=== PATIENT | female | born 1930 | race Two or more races ===

== ENCOUNTER 2017-04-22 15:36 | Inpatient (IN) | payer OTHER, MEDICAID ==
[~2017-04-22] VITALS: Ht 147.3 cm; Wt 66.7 kg
[~2017-04-22 15:36] MED LIST: ALPR0.25 PO; BIMA2.5D5 OP; BRIN15DR OP; CALC600T12 PO; CARV3.12 PO; DOCU50CA6 PO; FERR-58 PO; FURO-144 PO; GLIM1TAB2 PO; HYDR-4077 PO; LEVO5TAB13 PO; LOVA20TA2 PO; PANT40TA4 PO
--- NOTE | 2017-04-22 15:58 | NUR ---
electrical technician instructor at bedside for blood draw. Urine obtained and sent to lab as well.
[2017-04-22 15:59] LABS: APPEARANCE,URINE Clear (CLEAR); BILIRUBIN,URINE Negative (NEGATIVE); BLOOD, URINE Negative Ery/uL (NEGATIVE); COLOR,URINE Yellow (YELLOW); KETONES,URINE Negative (NEGATIVE); LEUKOCYTE ESTERASE ,URINE Trace (NEGATIVE); NITRITE, URINE Negative (NEGATIVE); PH,URINE 5.5 (5.0-8.0); PROTEIN,URINE >=300 mg/dl (NEGATIVE); UGLUCOSE Negative (NEGATIVE); UROBILINOGEN,URINE 0.2 EU/dL (0.2)
--- NOTE | 2017-04-22 16:00 | NUR ---
BB FROM [facility] LIVES IN AN USP WITH SI PLANS TO TAKE PILLS. DENIES HI. PATIENT A/OX 4. BREATHING EVEN AND UNLABORED. NO SOB. NO HALLUCINATIONS, PATIENT CALM AND COOPERATIVE. VITALS STABLE. SAFETY AND COMFORT MEASURES IN PLACE. AWAITING MD ORDERS.
[2017-04-22 16:02] LABS: BASOPHILS % (AUTO) 0.1 % (0.0-2.0); EOSINOPHILS # (AUTO) 0.1 /CMM (0.0-0.7); EOSINOPHILS % (AUTO) 1.6 % (0.0-6.0); HEMATOCRIT 39 % (33-45); HEMOGLOBIN 13.1 g/dL (11.5-14.8); LYMPHOCYTES # (AUTO) 1.2 /CMM (0.8-4.8); LYMPHOCYTES % (AUTO) 13.9 % (20.0-44.0); MEAN CORPUSCULAR HEMOGLOBIN 30 PG (26.0-33.0); MEAN CORPUSCULAR HGB CONC 34 g/dl (31.0-36.0); MEAN CORPUSCULAR VOLUME 89 fL (82-100); MONOCYTES # (AUTO) 0.4 /CMM (0.1-1.30); MONOCYTES % (AUTO) 4.7 % (2.0-12.0); NEUTROPHILS # (AUTO) 6.6 /CMM (1.8-8.9); NEUTROPHILS % (AUTO) 79.7 % (43.0-81.0); PLATELET COUNT (AUTO) 175 /CMM (150-450); RDW COEFFICIENT OF VARIATION 13.4 (11.5-15.0); RED BLOOD CELL COUNT(AUTO) 4.34 MIL/uL (4.0-5.2); WHITE BLOOD COUNT (AUTO) 8.3 K/uL (4.3-11.0)
[2017-04-22 16:08] LABS: BACTERIA,URINE Rare /HPF (None Seen); HYALINE CASTS, URINE Rare /LPF (None Seen); RBC,URINE 0-3 /HPF (0-2); SQUAMOUS EPITHELIAL CELL,UR Few /HPF (None Seen)
[2017-04-22 16:13] LABS: CALCIUM, SERUM 8.7 mg/dL (8.5-10.1); CARBON DIOXIDE 28 mmol/L (21-32); CHLORIDE 106 mmol/L (98-107); CREATININE 1.8 mg/dL (0.6-1.3); GLUCOSE 209 mg/dL (74-106); POTASSIUM 4.1 mmol/L (3.5-5.1); SODIUM SERUM 140 mmol/L (136-145); UREA NITROGEN, BLOOD 37 mg/dL (7-18)
[2017-04-22 16:18] LABS: ALANINE AMINOTRANSFERASE 18 U/L (12-78); ALBUMIN 3.5 g/dL (3.4-5.0); ALCOHOL, BLOOD < 3 mg/dL (0-0); ALKALINE PHOSPHATASE 108 U/L (46-116); ASPARTATE AMINOTRANSFERASE 19 U/L (15-37); BILIRUBIN,DIRECT 0.1 mg/dL (0.0-0.2); BILIRUBIN,TOTAL 0.3 mg/dL (0.2-1.0); TOTAL PROTEIN, SERUM 7.7 g/dL (6.4-8.2)
[2017-04-22 16:19] LABS: ACETAMINOPHEN 0 ug/ml (10-30); SALICYLATE 0.7 mg/dL (2.8-20.0)
[2017-04-22 16:34] LABS: THYROID STIMULATING HORMONE 1.544 uIU/mL (0.358-3.74)
--- NOTE | 2017-04-22 16:45 | NUR ---
SHANITA OSBORNE AT BEDSIDE FOR PSYCH EVAL. PATIENT PLACED ON 5150 D/T DTS. PATIENT TO BE TRANSFERRED TO GPS.
--- NOTE | 2017-04-22 17:15 | NUR ---
REPORT GIVEN TO KELBY VELASQUEZ FOR GPS TRANSFER.
--- NOTE | 2017-04-22 17:35 | NUR ---
pt. arrived from er,vs taken oriented to room food ordered.belonging sheet done.
--- NOTE | 2017-04-22 17:37 | NUR ---
PATIENT TRANSFERRED TO GPS, ROOM 211 VIA WHEELCHAIR IN STABLE CONDITION.
[2017-04-22] MEDS ORDERED: MAGNESIUM HYDROXIDE 30 ML UDC PO PRN (18:30)
[2017-04-22] MEDS ORDERED: MAG HYDROX/AL HYDROX/SIMETH 30 ML UDC PO PRN (18:30)
[2017-04-22] MEDS ORDERED: ACETAMINOPHEN 325 MG TABLET PO PRN (18:30)
[2017-04-22] MEDS ORDERED: LORAZEPAM 0.5 MG TABLET PO PRN (18:30)
--- NOTE | 2017-04-22 18:50 | NUR ---
photos done.refused further body check other than arms,legs,will endorse to naga. shift.
[2017-04-22] MEDS ORDERED: ALEN70TA45 PO (19:13)
[2017-04-22] MEDS ORDERED: CARV12.52 PO (19:13)
[2017-04-22] MEDS ORDERED: AMLO5TAB2 PO (19:13)
[2017-04-22] MEDS ORDERED: ACET325T53 PO (19:13)
[2017-04-22] MEDS ORDERED: DOCU250C75 PO (19:13)
[2017-04-22] MEDS ORDERED: MAG30ORA PO (19:13)
[2017-04-22] MEDS ORDERED: CHOL100040 PO (19:13)
[2017-04-22] MEDS ORDERED: ALBU8.5H2 INH (19:13)
[2017-04-22] MEDS ORDERED: DONE5TAB34 PO (19:13)
[2017-04-22] MEDS ORDERED: CALC1TAB30 PO (19:13)
[2017-04-22] MEDS ORDERED: ASPI-991 PO (19:13)
[2017-04-22] MEDS ORDERED: MENT113G5 TP (19:26)
[2017-04-22] MEDS ORDERED: DORZ10DR8 EACHEYE (19:26)
[2017-04-22] MEDS ORDERED: HYDR-4077 PO (19:26)
[2017-04-22] MEDS ORDERED: FLUT16SP16 NS (19:26)
[2017-04-22] MEDS ORDERED: NITR1OIN2 TD (19:26)
[2017-04-22] MEDS ORDERED: NITR0.4T6 SL (19:26)
[2017-04-22] MEDS ORDERED: GLIM4TAB2 PO (19:26)
[2017-04-22] MEDS ORDERED: LATA2.5D7 EACHEYE (19:26)
[2017-04-22] MEDS ORDERED: PROP10DR10 EACHEYE (19:26)
--- NOTE | 2017-04-22 19:30 | NUR ---
GPS ADMISSION NOTE, RECEIVED PATIENT FROM [facility]. PATIENT ARRIVED ON THIS UNIT AT 1930 VIA STRETCHER WITH 2 EMT ESCORTS. PATIENT ADMITTED ON A 5150 HOLD FOR DTS. PER HOLD PATIENT HAS BEEN VERBALIZING THAT SHE IS SUICIDAL. PATIENT HAS A HISTORY OF DEPRESSION AND TOLD THE STAFF SHE WANTED TO OVERDOSE ON MEDICATION. WHEN INTERVIEWED PATIENT STATED, " I JUST DON'T WANT TO LIVE, I'VE BEEN THINKING ABOUT HANGING MYSELF BECAUSE THEIR IS NO FUTURE FOR ME. PATIENT IS NOT SAFE FOR DISCHARGE. THE 5150 WAS REVIEWED AND THE DOCUMENTATION IN THE 5150 HOLD APPEARS TO REFLECT THE PRESENTATION OF THE PATIENT. UPON FACE TO FACE ASSESSMENT PATIENT IS CURRENTLY LYING IN BED AWAKE, HAS A COMPLAINT OR S/S OF PAIN. PATIENT IS DISPLAYING NO S/S OF APPARENT DISTRESS. PATIENT BREATHING IS UNLABORED WITH EQUAL RISE AND FALL OF THE CHEST. PATIENT IS ALERT AND ORIENTATED X 2 ON ROOM AIR. PATIENT ASSISTED WITH TURING AND REPOSITIONING Q2HR AND PRN FOR COMFORT AND CIRCULATION. PATIENT HAS NO NEEDS AT THIS TIME. PATIENT IS NOTED TO BEING WITHDRAWN, DEPRESSED, DISHEVELED, DISORGANIZED, COOPERATIVE, AND NEEDS REDIRECTION. PATIENT DENIES SUICIDE IDEATIONS AND HOMICIDAL IDEATIONS AT THIS TIME. PATIENT IS UNDER THE PSYCHIATRIC CARE OF DR. LORENZANA AND THE MEDICAL CARE OF DR LOMBARDI. PATIENT BELONGINGS WERE INVENTORIED AND CHECKED FOR CONTRABAND. ALL CONTRABAND REMOVED AND STORED IN PATIENT HALLWAY LOCKER. PATIENT ADVANCED DIRECTIVES PREFERENCE, IMMUNIZATIONS QUESTIONER, NECESSARY PAPERWORK COMPLETED. PATIENT REFUSED TO DO A FULL BODY CHECK. PATIENT ORIENTATED TO ROOM, FLOOR, AND STAFF WITH ALL QUESTIONS ANSWERED. PATIENT EDUCATED ON THE USE OF THE CALL OGLESBY. PATIENT BED SIDE RAILS ARE UP X 2 FOR SAFETY. PATIENT BED IS LOCKED, LOW AND I WILL CONTINUE TO MONITOR THIS PATIENT Q 15 MIN WITH THE HELP OF STAFF TO MAINTAIN SAFETY.
[2017-04-22] MEDS ORDERED: POTA20TA83 PO (19:33)
[2017-04-22] MEDS ORDERED: QUET25TA PO ×2 (19:33)
[2017-04-22] MEDS ORDERED: TIOT4MIS5 IH (19:33)
[2017-04-22] MEDS ORDERED: SENN8.6T6 PO (19:33)
[2017-04-22] MEDS ORDERED: SERT100T PO (19:33)
[2017-04-22 20:16] VITALS: BP 165/75
--- NOTE | 2017-04-22 22:24 | NUR ---
GPS RN NOTE, PATIENT VITAL SIGNS ARE FOLLOWS B/P 180/90, PULSE 78, TEMP 98.1, RESPIRATIONS 18, AND SPO2 98%. PERFORMED ACCU CHECK ON PATIENT WITH A BLOOD SUGAR RESULT OF 166. PATIENT ALSO NEEDS A MED RECONCILIATION WELL. PAGED [facility] AND INFORMED DR SOFI LO OF MY FINDINGS. DR SOFI LO ORDERED HYDRALAZINE HCL 50MG 1 TAB PO Q6HR PRN IF SYSTOLIC BP IS GREATER THAN 160, ALBUTEROL 2.5MG/3ML VIA NEB Q6HR PRN, IPRATROPIUM 0.5MG VIA NEB Q6HR PRN, AND A MODERATE INSULIN SLIDING SCALE ACHS TO START IN THE AM. DR SOFI LO SAID SHE WILL NOT BE ABLE TO THE MED RECON TONIGHT AND TO HAVE THE MORNING MD COMPLETE IT IN THE A.M. ALL ORDERS NOTED AND CARRIED OUT. WILL ENDORSE TO THE AM NURSE AND I WILL CONTINUE TO MONITOR THIS PATIENT.
[2017-04-22] MEDS ORDERED: DEXTROSE 50%-WATER 50 ML DISP.SYRIN IV PRN (22:30)
[2017-04-22] MEDS ORDERED: hydrALAZINE HCL 50 MG TABLET PO PRN (22:30)
[2017-04-22] MEDS ORDERED: IPRATROPIUM NEB FS 0.5 MG/2.5 ML AMPUL.NEB NEB PRN (22:30)
[2017-04-22] MEDS ORDERED: ALBUTEROL FS 2.5 MG/3 ML VIAL.NEB NEB PRN (22:30)
[2017-04-22 22:36] VITALS: BP 180/90
--- NOTE | 2017-04-22 22:36 | NUR ---
GPS RN NOTE, PATIENT VITAL SIGNS ARE FOLLOWS B/P 180/90, PULSE 78, TEMP 98.1, RESPIRATIONS 18, AND SPO2 98%. GAVE HYDRALAZINE HCL 50MG 1 TAB PO Q6HR PRN ORDERED. WILL REASSESS PATIENT BLOOD PRESSURE AND I WILL CONTINUE TO MONITOR THIS PATIENT.
[2017-04-23 07:14] LABS: ALANINE AMINOTRANSFERASE 18 U/L (12-78); ALBUMIN 2.8 g/dL (3.4-5.0); ALKALINE PHOSPHATASE 82 U/L (46-116); ASPARTATE AMINOTRANSFERASE 16 U/L (15-37); BILIRUBIN,TOTAL 0.3 mg/dL (0.2-1.0); CALCIUM, SERUM 8.8 mg/dL (8.5-10.1); CARBON DIOXIDE 29 mmol/L (21-32); CHLORIDE 107 mmol/L (98-107); CREATININE 1.4 mg/dL (0.6-1.3); GLUCOSE 98 mg/dL (74-106); POTASSIUM 3.8 mmol/L (3.5-5.1); SODIUM SERUM 144 mmol/L (136-145); TOTAL PROTEIN, SERUM 6.6 g/dL (6.4-8.2); UREA NITROGEN, BLOOD 31 mg/dL (7-18)
[2017-04-23 08:00] VITALS: BP 172/83
[2017-04-23] MEDS: BLOOD SUGAR DIAGNOSTIC 1 EACH STRIP VI SCH ×4 (08:54→22:11)
[2017-04-23] MEDS ORDERED: PNEUMOCOCCAL 23-VAL P-SAC VAC 0.5 ML VIAL SQ ONE (09:00)
[2017-04-23] MEDS ORDERED: MAG HYDROX/AL HYDROX/SIMETH 30 ML UDC PO PRN (10:30)
[2017-04-23] MEDS ORDERED: NITROGLYCERIN 0.4 MG/TAB BOTTLE SL PRN (10:30)
[2017-04-23] MEDS ORDERED: ALBUTEROL SULFATE 8 GM HFA.AER.AD NEB PRN (10:30)
[2017-04-23] MEDS ORDERED: BIMATOPROST 2.5 ML DROPS OP SCH (10:30)
[2017-04-23] MEDS ORDERED: BRINZOLAMIDE 1 % OPHTH SOLN 10 ML BOTTLE EACHEYE SCH (11:00)
--- NOTE | 2017-04-23 11:21 | NUR ---
Initial Discharge Plan: Patient resides in an [facility] ([facility]) located at [address] [place] [id number]; [phone]) and wants to return when she is ready for discharge. IRENE called [facility] and spoke to receptionist secretary Sanna. She stated patient is a resident of their facility and that the executive services administrator Alyx is not available until 12:30PM. SW attempted to speak with the patient's son ([phone]) however he did not answer and SW left contact information. SW will follow up. SW will help form a safe and proper discharge.
[2017-04-23] MEDS ORDERED: LEVOCETIRIZINE DIHYDROCHLORIDE 5 MG PO SCH (12:30)
--- NOTE | 2017-04-23 12:31 | NUR ---
UR review: IRENE faxed initial clinicals (face sheet, 5150 hold, medical H&P, medication list, discharge plan) to Jose BONILLA from [facility] for [facility] to FAX# [phone]. Informed him that psych H&P is not available yet and will fax when it becomes available. IRENE will follow up. TRACKING# [id number] Addendum: 04/23/17 at 1530 by SULMA BONILLA Called Jose at [facility] ([phone]). He stated correct fax number is FAX: [phone]. IRENE re-sent clinicals and informed him that psych H&P is not yet available and will send when it becomes available.
--- NOTE | 2017-04-23 12:58 | NUR ---
IRENE called [facility] ([address] [place] [address] ) and spoke with haroon Smith's coordinator. IRENE was informed that staff would need to come and reassess pt before deciding if pt can be re-admitted. IRENE will follow up.
[2017-04-23] MEDS: ASPIRIN EC 81 MG TABLET.DR PO SCH (13:44)
[2017-04-23] MEDS: hydrALAZINE HCL 50 MG TABLET PO SCH ×2 (13:45→17:44)
[2017-04-23] MEDS: AMLODIPINE BESYLATE 5 MG TABLET PO SCH (13:45)
--- NOTE | 2017-04-23 13:45 | NUR ---
GPS/RN BP WAS 200/80 ADMINISTERED 1300 BP MEDICATIONS ORDERED, WILL RECHECK AND CONTINUE TO MONITOR. NO S/S OF DISTRESS AT THIS TIME, BREATHING EVEN AND UNLABORED.
[2017-04-23] MEDS: FUROSEMIDE 40 MG TABLET PO SCH (13:46)
[2017-04-23] MEDS: IPRATROPIUM NEB FS 0.5 MG/2.5 ML AMPUL.NEB NEB SCH ×2 (14:54→19:51)
[2017-04-23 15:29] VITALS: BP 158/62
--- NOTE | 2017-04-23 15:30 | NUR ---
GPS/RN RECHECKED BP 158/62, HR 77, 02 95, WILL CONTINUE TO MONITOR.
[2017-04-23 16:00] VITALS: BP 158/62
[2017-04-23 16:10] LABS: CHOLESTEROL 210 mg/dL (<200); HDL CHOLESTEROL 48 mg/dL (40-60); LDL 128 mg/dL (0-99); TRIGLYCERIDES 208 mg/dL (30-150)
[2017-04-23] MEDS: INSULIN REGULAR, HUMAN 100 UNIT/ML 3 ML VIAL SQ PRN (17:32)
[2017-04-23] MEDS: FERROUS SULFATE (325 MG) 325 MG/TAB TABLET PO SCH (17:35)
[2017-04-23] MEDS: DOCUSATE SODIUM 250 MG CAPSULE PO SCH (17:36)
[2017-04-23] MEDS: CARVEDILOL 12.5 MG TABLET PO SCH (17:36)
[2017-04-23] MEDS: GLIMEPIRIDE 4 MG TABLET PO SCH (17:37)
[2017-04-23] MEDS: DORZOLAMIDE OPTH 2% 10 ML BOTTLE EACHEYE SCH (17:42)
--- NOTE | 2017-04-23 17:48 | NUR ---
GPS/RN ADMINISTERED PNEUMO VACCINE PER PATIENT REQUEST, TOLERATED WELL, WILL CONTINUE TO MONITOR.
[2017-04-23 20:00] VITALS: BP 147/74
[2017-04-23] MEDS: LATANOPROST EYE DROP 0.005% 2.5 ML BOTTLE EACHEYE SCH (21:46)
[2017-04-23] MEDS: ATORVASTATIN 10 MG TABLET PO SCH (21:46)
[2017-04-23] MEDS: SENNOSIDES 8.6 MG TABLET PO SCH (21:46)
[2017-04-23] MEDS: DONEPEZIL 5 MG TABLET PO SCH (21:46)
[2017-04-23] MEDS: TEMAZEPAM 7.5 MG CAPSULE PO PRN (21:47)
[2017-04-23] MEDS: OLANZAPINE 2.5 MG TABLET PO SCH (21:47)
[2017-04-23] MEDS ORDERED: LOVASTATIN (NON FORMULARY) 20 MG TABLET PO SCH (22:00)
[2017-04-24] MEDS: IPRATROPIUM NEB FS 0.5 MG/2.5 ML AMPUL.NEB NEB SCH ×4 (01:11→20:30)
[2017-04-24 06:41] LABS: MAGNESIUM 1.8 mg/dL (1.8-2.4); PHOSPHORUS 3.5 mg/dL (2.5-4.9)
[2017-04-24 07:15] LABS: BASOPHILS % (AUTO) 0.4 % (0.0-2.0); EOSINOPHILS # (AUTO) 0.2 /CMM (0.0-0.7); EOSINOPHILS % (AUTO) 2.4 % (0.0-6.0); HEMATOCRIT 35 % (33-45); HEMOGLOBIN 11.8 g/dL (11.5-14.8); LYMPHOCYTES # (AUTO) 1.5 /CMM (0.8-4.8); LYMPHOCYTES % (AUTO) 22.2 % (20.0-44.0); MEAN CORPUSCULAR HEMOGLOBIN 29 PG (26.0-33.0); MEAN CORPUSCULAR HGB CONC 33 g/dl (31.0-36.0); MEAN CORPUSCULAR VOLUME 88 fL (82-100); MONOCYTES # (AUTO) 0.4 /CMM (0.1-1.30); MONOCYTES % (AUTO) 5.9 % (2.0-12.0); NEUTROPHILS # (AUTO) 4.6 /CMM (1.8-8.9); NEUTROPHILS % (AUTO) 69.1 % (43.0-81.0); PLATELET COUNT (AUTO) 145 /CMM (150-450); RDW COEFFICIENT OF VARIATION 13.6 (11.5-15.0); RED BLOOD CELL COUNT(AUTO) 4.02 MIL/uL (4.0-5.2); WHITE BLOOD COUNT (AUTO) 6.7 K/uL (4.3-11.0)
[2017-04-24] MEDS: BLOOD SUGAR DIAGNOSTIC 1 EACH STRIP VI SCH ×4 (07:47→21:54)
[2017-04-24 08:00] VITALS: BP 160/67
[2017-04-24] MEDS: DORZOLAMIDE OPTH 2% 10 ML BOTTLE EACHEYE SCH ×2 (08:29→16:28)
[2017-04-24] MEDS: FLUTICASONE PROPIONATE 16 GM BOTTLE NS SCH (08:29)
[2017-04-24] MEDS: DOCUSATE SODIUM 250 MG CAPSULE PO SCH ×3 (08:30→16:33)
[2017-04-24] MEDS: FUROSEMIDE 40 MG TABLET PO SCH (08:30)
[2017-04-24] MEDS: FERROUS SULFATE (325 MG) 325 MG/TAB TABLET PO SCH ×2 (08:31→16:28)
[2017-04-24] MEDS: ASPIRIN EC 81 MG TABLET.DR PO SCH (08:32)
[2017-04-24] MEDS: CARVEDILOL 12.5 MG TABLET PO SCH ×2 (08:32→16:29)
[2017-04-24] MEDS: AMLODIPINE BESYLATE 5 MG TABLET PO SCH (08:32)
[2017-04-24] MEDS: PANTOPRAZOLE 40 MG TABLET.DR PO SCH (08:36)
[2017-04-24] MEDS: CALCIUM CARB 250MG /VITAMIN D 1 UDTAB PO SCH (08:36)
[2017-04-24] MEDS: hydrALAZINE HCL 50 MG TABLET PO SCH ×3 (08:37→16:28)
[2017-04-24] MEDS: POTASSIUM CHLORIDE 20 MEQ TAB.PRT.SR PO SCH (08:37)
[2017-04-24] MEDS ORDERED: Medication Not On Formulary EA (Tiotropium Bromide (Spiriva Respimat) 2 PUFF) IH SCH (09:00)
[2017-04-24] MEDS: GLIMEPIRIDE 4 MG TABLET PO SCH ×2 (09:11→16:32)
--- NOTE | 2017-04-24 10:42 | NUR ---
UR Review: IRENE sent over H & P to [facility], . IRENE called [facility] at [phone] and spoke with Yudith, who confirmed that the H and P was received
[2017-04-24] MEDS: INSULIN REGULAR, HUMAN 100 UNIT/ML 3 ML VIAL SQ PRN ×3 (12:04→17:28)
--- NOTE | 2017-04-24 14:17 | NUR ---
Sheela in the unit was notified about the BS in the morning and the latest BS.
[2017-04-24 16:00] VITALS: BP 161/76
[2017-04-24] MEDS: DULOXETINE HCL 30 MG CAPSULE.DR PO SCH (16:29)
[2017-04-24 18:14] VITALS: BP 122/66
[2017-04-24 20:00] VITALS: BP 138/61
[2017-04-24] MEDS: LATANOPROST EYE DROP 0.005% 2.5 ML BOTTLE EACHEYE SCH (21:51)
[2017-04-24] MEDS: SENNOSIDES 8.6 MG TABLET PO SCH (21:51)
[2017-04-24] MEDS: OLANZAPINE 2.5 MG TABLET PO SCH (21:53)
[2017-04-24] MEDS: ATORVASTATIN 10 MG TABLET PO SCH (21:53)
[2017-04-24] MEDS: TEMAZEPAM 7.5 MG CAPSULE PO PRN (21:54)
[2017-04-24] MEDS: DONEPEZIL 5 MG TABLET PO SCH (21:54)
[2017-04-24] MEDS: *INSULIN REGULAR(HUMULIN R)HUM 100 UNIT/ML VIAL SQ PRN (21:55)
[2017-04-25] MEDS: IPRATROPIUM NEB FS 0.5 MG/2.5 ML AMPUL.NEB NEB SCH ×4 (01:30→20:37)
[2017-04-25] MEDS: BLOOD SUGAR DIAGNOSTIC 1 EACH STRIP VI SCH ×4 (07:46→21:30)
[2017-04-25 08:00] VITALS: BP 150/65
[2017-04-25] MEDS: cetrizine 10 MG TABLET PO SCH (08:34)
[2017-04-25] MEDS: CALCIUM CARB 250MG /VITAMIN D 1 UDTAB PO SCH (08:34)
[2017-04-25] MEDS: FERROUS SULFATE (325 MG) 325 MG/TAB TABLET PO SCH ×2 (08:34→16:26)
[2017-04-25] MEDS: DULOXETINE HCL 30 MG CAPSULE.DR PO SCH (08:34)
[2017-04-25] MEDS: ASPIRIN EC 81 MG TABLET.DR PO SCH (08:35)
[2017-04-25] MEDS: DOCUSATE SODIUM 250 MG CAPSULE PO SCH ×2 (08:35→16:26)
[2017-04-25] MEDS: PANTOPRAZOLE 40 MG TABLET.DR PO SCH (08:35)
[2017-04-25] MEDS: GLIMEPIRIDE 4 MG TABLET PO SCH ×2 (08:35→16:26)
[2017-04-25] MEDS: AMLODIPINE BESYLATE 5 MG TABLET PO SCH (08:36)
[2017-04-25] MEDS: CARVEDILOL 12.5 MG TABLET PO SCH ×2 (08:36→16:27)
[2017-04-25] MEDS: FUROSEMIDE 40 MG TABLET PO SCH (08:36)
[2017-04-25] MEDS: hydrALAZINE HCL 50 MG TABLET PO SCH ×3 (08:36→16:26)
[2017-04-25] MEDS: POTASSIUM CHLORIDE 20 MEQ TAB.PRT.SR PO SCH (08:37)
[2017-04-25] MEDS: FLUTICASONE PROPIONATE 16 GM BOTTLE NS SCH (08:43)
[2017-04-25] MEDS: DORZOLAMIDE OPTH 2% 10 ML BOTTLE EACHEYE SCH ×2 (08:44→16:29)
[2017-04-25 12:54] VITALS: BP 129/67
[2017-04-25 14:07] LABS: PTH, INTACT 62 pg/mL (15-65)
[2017-04-25] MEDS: INSULIN REGULAR, HUMAN 100 UNIT/ML 3 ML VIAL SQ PRN ×3 (14:08→22:06)
--- NOTE | 2017-04-25 14:15 | NUR ---
NECKTIES PAINTER-NOTES PATIENT BLOOD SUGAR WAS 154MG/DL, 2 UNITS OF HUMULIN R GIVEN PRN ORDER.
[2017-04-25 15:46] VITALS: BP 133/66
--- NOTE | 2017-04-25 18:04 | NUR ---
BLIND CLEANER-NOTES PATIENT BLOOD SUGAR WAS 188 MG/DL, 3 UNITS OF HUMULIN R GIVEN PRN ORDER.
[2017-04-25 20:00] VITALS: BP 115/54
[2017-04-25] MEDS: LATANOPROST EYE DROP 0.005% 2.5 ML BOTTLE EACHEYE SCH (21:27)
[2017-04-25] MEDS: DONEPEZIL 5 MG TABLET PO SCH (21:27)
[2017-04-25] MEDS: ATORVASTATIN 10 MG TABLET PO SCH (21:27)
[2017-04-25] MEDS: SENNOSIDES 8.6 MG TABLET PO SCH (21:28)
[2017-04-25] MEDS: OLANZAPINE 2.5 MG TABLET PO SCH (21:29)
--- NOTE | 2017-04-25 22:38 | NUR ---
GPS RN NOTE: PATIENT NOTED WITH LEFT SIDE OF THE FACE REDNESS AND C/O ITCHINESS. ENCOURAGED THE PATIENT TO WASH HER FACE. PATIENT COOPERATED. PICTURE DONE. WOUND CONSULT TRIGGERED.
[2017-04-26] MEDS: IPRATROPIUM NEB FS 0.5 MG/2.5 ML AMPUL.NEB NEB SCH ×4 (01:30→20:29)
[2017-04-26 08:08] VITALS: BP_SYST 156; BP_DIAS 53; BP_DIAS 63
[2017-04-26] MEDS: BLOOD SUGAR DIAGNOSTIC 1 EACH STRIP VI SCH ×4 (08:12→22:06)
[2017-04-26] MEDS: FUROSEMIDE 40 MG TABLET PO SCH (08:14)
[2017-04-26] MEDS: DOCUSATE SODIUM 250 MG CAPSULE PO SCH ×2 (08:14→16:35)
[2017-04-26] MEDS: PANTOPRAZOLE 40 MG TABLET.DR PO SCH (08:14)
[2017-04-26] MEDS: ASPIRIN EC 81 MG TABLET.DR PO SCH (08:14)
[2017-04-26] MEDS: GLIMEPIRIDE 4 MG TABLET PO SCH ×2 (08:14→16:35)
[2017-04-26] MEDS: DULOXETINE HCL 30 MG CAPSULE.DR PO SCH (08:14)
[2017-04-26] MEDS: POTASSIUM CHLORIDE 20 MEQ TAB.PRT.SR PO SCH (08:14)
[2017-04-26] MEDS: CALCIUM CARB 250MG /VITAMIN D 1 UDTAB PO SCH (08:14)
[2017-04-26] MEDS: FERROUS SULFATE (325 MG) 325 MG/TAB TABLET PO SCH ×2 (08:15→16:35)
[2017-04-26] MEDS: cetrizine 10 MG TABLET PO SCH (08:15)
[2017-04-26] MEDS: FLUTICASONE PROPIONATE 16 GM BOTTLE NS SCH (08:28)
[2017-04-26] MEDS: CARVEDILOL 12.5 MG TABLET PO SCH ×2 (08:29→16:35)
[2017-04-26] MEDS: DORZOLAMIDE OPTH 2% 10 ML BOTTLE EACHEYE SCH ×2 (08:29→17:00)
[2017-04-26] MEDS: hydrALAZINE HCL 50 MG TABLET PO SCH ×3 (08:30→16:36)
[2017-04-26] MEDS: AMLODIPINE BESYLATE 5 MG TABLET PO SCH (08:30)
[2017-04-26] MEDS: INSULIN REGULAR, HUMAN 100 UNIT/ML 3 ML VIAL SQ PRN ×2 (12:19→18:13)
[2017-04-26 16:00] VITALS: BP 106/60
[2017-04-26 19:34] VITALS: BP 131/67
[2017-04-26] MEDS: DONEPEZIL 5 MG TABLET PO SCH (21:15)
[2017-04-26] MEDS: SENNOSIDES 8.6 MG TABLET PO SCH (21:15)
[2017-04-26] MEDS: ATORVASTATIN 10 MG TABLET PO SCH (21:15)
[2017-04-26] MEDS: OLANZAPINE 2.5 MG TABLET PO SCH (21:16)
[2017-04-26] MEDS: LATANOPROST EYE DROP 0.005% 2.5 ML BOTTLE EACHEYE SCH (21:16)
[2017-04-26] MEDS: *INSULIN REGULAR(HUMULIN R)HUM 100 UNIT/ML VIAL SQ PRN (21:35)
[2017-04-27] MEDS: IPRATROPIUM NEB FS 0.5 MG/2.5 ML AMPUL.NEB NEB SCH ×4 (02:30→19:30)
[2017-04-27] MEDS ORDERED: ALENDRONATE 70 MG TABLET PO SCH (07:30)
[2017-04-27 08:00] VITALS: BP 124/65
[2017-04-27] MEDS: ASPIRIN EC 81 MG TABLET.DR PO SCH (08:22)
[2017-04-27] MEDS: DULOXETINE HCL 30 MG CAPSULE.DR PO SCH (08:22)
[2017-04-27] MEDS: GLIMEPIRIDE 4 MG TABLET PO SCH ×2 (08:22→16:55)
[2017-04-27] MEDS: cetrizine 10 MG TABLET PO SCH (08:22)
[2017-04-27] MEDS: CALCIUM CARB 250MG /VITAMIN D 1 UDTAB PO SCH (08:22)
[2017-04-27] MEDS: BLOOD SUGAR DIAGNOSTIC 1 EACH STRIP VI SCH ×4 (08:22→21:40)
[2017-04-27] MEDS: PANTOPRAZOLE 40 MG TABLET.DR PO SCH (08:22)
[2017-04-27] MEDS: DOCUSATE SODIUM 250 MG CAPSULE PO SCH ×2 (08:22→16:55)
[2017-04-27] MEDS: FERROUS SULFATE (325 MG) 325 MG/TAB TABLET PO SCH ×2 (08:22→16:56)
[2017-04-27] MEDS: AMLODIPINE BESYLATE 5 MG TABLET PO SCH (08:23)
[2017-04-27] MEDS: CARVEDILOL 12.5 MG TABLET PO SCH ×2 (08:23→16:55)
[2017-04-27] MEDS: POTASSIUM CHLORIDE 20 MEQ TAB.PRT.SR PO SCH (08:23)
[2017-04-27] MEDS: hydrALAZINE HCL 50 MG TABLET PO SCH ×3 (08:24→16:55)
[2017-04-27] MEDS: FLUTICASONE PROPIONATE 16 GM BOTTLE NS SCH (08:26)
[2017-04-27] MEDS: DORZOLAMIDE OPTH 2% 10 ML BOTTLE EACHEYE SCH ×2 (09:11→17:00)
--- NOTE | 2017-04-27 11:14 | NUR ---
UR Review: IRENE spoke with Jose from [facility] at [phone]. Jose confirmed that daily progress notes are needed for pt, but medication lists are not needed at this time. IRENE faxed over daily progress notes for the past three days FAX #: [phone]. IRENE followed up with Jose who stated that he will call if any additional information is needed.
[2017-04-27 12:15] LABS: *SPE ALPHA-1-GLOBULIN 0.2 g/dL (0.0-0.4); *SPE ALPHA-2-GLOBULIN 0.7 g/dL (0.4-1.0); *SPE BETA GLOBULIN 0.9 g/dL (0.7-1.3); *SPE GLOBULIN, TOTAL 3.1 g/dL (2.2-3.9); *SPE M-SPIKE Not Observed g/dL (Not Observed); *SPE PROTEIN TOTAL 6.1 g/dL (6.0-8.5); *SPEGAMMA GLOBULIN 1.3 g/dL (0.4-1.8)
--- NOTE | 2017-04-27 15:16 | NUR ---
IRENE called [facility] at [phone] and left a message for Alyx, [facility]'s coordinator, requesting an assessment for tomorrow for pt. IRENE will follow up.
[2017-04-27 16:00] VITALS: BP 148/66
[2017-04-27] MEDS: INSULIN REGULAR, HUMAN 100 UNIT/ML 3 ML VIAL SQ PRN (17:57)
[2017-04-27 19:55] VITALS: BP 158/77
[2017-04-27] MEDS: DONEPEZIL 5 MG TABLET PO SCH (21:46)
[2017-04-27] MEDS: SENNOSIDES 8.6 MG TABLET PO SCH (21:46)
[2017-04-27] MEDS: ATORVASTATIN 10 MG TABLET PO SCH (21:46)
[2017-04-27] MEDS: OLANZAPINE 2.5 MG TABLET PO SCH (21:50)
[2017-04-27] MEDS: LATANOPROST EYE DROP 0.005% 2.5 ML BOTTLE EACHEYE SCH (21:51)
[2017-04-27] MEDS: TEMAZEPAM 7.5 MG CAPSULE PO PRN (22:44)
[2017-04-28] MEDS: IPRATROPIUM NEB FS 0.5 MG/2.5 ML AMPUL.NEB NEB SCH ×4 (01:29→19:44)
[2017-04-28 07:20] LABS: BASOPHILS % (AUTO) 0.6 % (0.0-2.0); EOSINOPHILS # (AUTO) 0.2 /CMM (0.0-0.7); EOSINOPHILS % (AUTO) 2.6 % (0.0-6.0); HEMATOCRIT 37 % (33-45); HEMOGLOBIN 12.4 g/dL (11.5-14.8); LYMPHOCYTES # (AUTO) 1.5 /CMM (0.8-4.8); LYMPHOCYTES % (AUTO) 21.7 % (20.0-44.0); MEAN CORPUSCULAR HEMOGLOBIN 30 PG (26.0-33.0); MEAN CORPUSCULAR HGB CONC 33 g/dl (31.0-36.0); MEAN CORPUSCULAR VOLUME 89 fL (82-100); MONOCYTES # (AUTO) 0.5 /CMM (0.1-1.30); MONOCYTES % (AUTO) 6.5 % (2.0-12.0); NEUTROPHILS # (AUTO) 4.8 /CMM (1.8-8.9); NEUTROPHILS % (AUTO) 68.6 % (43.0-81.0); PLATELET COUNT (AUTO) 147 /CMM (150-450); RDW COEFFICIENT OF VARIATION 13.8 (11.5-15.0); RED BLOOD CELL COUNT(AUTO) 4.15 MIL/uL (4.0-5.2); WHITE BLOOD COUNT (AUTO) 6.9 K/uL (4.3-11.0)
[2017-04-28 07:44] LABS: CALCIUM, SERUM 9.6 mg/dL (8.5-10.1); CARBON DIOXIDE 30 mmol/L (21-32); CHLORIDE 104 mmol/L (98-107); CREATININE 1.7 mg/dL (0.6-1.3); GLUCOSE 61 mg/dL (74-106); MAGNESIUM 1.9 mg/dL (1.8-2.4); PHOSPHORUS 4.4 mg/dL (2.5-4.9); POTASSIUM 3.8 mmol/L (3.5-5.1); SODIUM SERUM 140 mmol/L (136-145); UREA NITROGEN, BLOOD 47 mg/dL (7-18)
[2017-04-28 08:00] VITALS: BP 141/65
[2017-04-28] MEDS: FERROUS SULFATE (325 MG) 325 MG/TAB TABLET PO SCH ×2 (08:10→16:19)
[2017-04-28] MEDS: DULOXETINE HCL 30 MG CAPSULE.DR PO SCH (08:10)
[2017-04-28] MEDS: ASPIRIN EC 81 MG TABLET.DR PO SCH (08:11)
[2017-04-28] MEDS: DOCUSATE SODIUM 250 MG CAPSULE PO SCH ×2 (08:11→16:48)
[2017-04-28] MEDS: hydrALAZINE HCL 50 MG TABLET PO SCH ×3 (08:11→16:19)
[2017-04-28] MEDS: CALCIUM CARB 250MG /VITAMIN D 1 UDTAB PO SCH (08:11)
[2017-04-28] MEDS: cetrizine 10 MG TABLET PO SCH (08:11)
[2017-04-28] MEDS: PANTOPRAZOLE 40 MG TABLET.DR PO SCH (08:11)
[2017-04-28] MEDS: GLIMEPIRIDE 4 MG TABLET PO SCH ×2 (08:11→16:19)
[2017-04-28] MEDS: DORZOLAMIDE OPTH 2% 10 ML BOTTLE EACHEYE SCH ×2 (08:12→16:49)
[2017-04-28] MEDS: AMLODIPINE BESYLATE 5 MG TABLET PO SCH (08:12)
[2017-04-28] MEDS: CARVEDILOL 12.5 MG TABLET PO SCH ×2 (08:12→16:48)
[2017-04-28] MEDS: BLOOD SUGAR DIAGNOSTIC 1 EACH STRIP VI SCH ×4 (08:12→21:35)
[2017-04-28] MEDS: FLUTICASONE PROPIONATE 16 GM BOTTLE NS SCH (08:17)
[2017-04-28] MEDS: POTASSIUM CHLORIDE 20 MEQ TAB.PRT.SR PO SCH (09:02)
--- NOTE | 2017-04-28 11:15 | NUR ---
IRENE called Irvin, an church administrator from [facility] at [phone] and left a voicemail for him with contact info. IRENE stressed urgency of reassessment of pt. IRENE will follow up.
--- NOTE | 2017-04-28 11:30 | NUR ---
IRENE received a call back from Irvin, an purchasing administrator from [facility] at [phone]. Irvin informed IRENE that he will come by today, 04/28/17, to reassess the pt. IRENE then called pt's family at [phone] and spoke with pt's [id number], Nayely. IRENE informed her of the reassessment. IRENE will follow up.
--- NOTE | 2017-04-28 12:13 | NUR ---
UR Review: IRENE faxed over daily progress notes for pt to Jose from [facility], .
[2017-04-28] MEDS: INSULIN REGULAR, HUMAN 100 UNIT/ML 3 ML VIAL SQ PRN (12:50)
--- NOTE | 2017-04-28 13:15 | NUR ---
GPS/RN BS 211, ADMINISTERED 6 UNITS REGULAR INSULIN, WILL CONTINUE TO MONITOR.
--- NOTE | 2017-04-28 15:47 | NUR ---
IRENE followed up with Irvin, an sap basis administrator from [facility] at [phone]. Irvin told IRENE that he will be by to reassess the pt for placement at [facility] between 4pm and 6pm. IRENE informed pt's nurse.
[2017-04-28 16:05] VITALS: BP 153/66
[2017-04-28 20:05] VITALS: BP 154/70
[2017-04-28 20:08] VITALS: BP 154/70
[2017-04-28] MEDS: DONEPEZIL 5 MG TABLET PO SCH (21:34)
[2017-04-28] MEDS: OLANZAPINE 2.5 MG TABLET PO SCH (21:34)
[2017-04-28] MEDS: SENNOSIDES 8.6 MG TABLET PO SCH (21:34)
[2017-04-28] MEDS: ATORVASTATIN 10 MG TABLET PO SCH (21:34)
[2017-04-28] MEDS: LATANOPROST EYE DROP 0.005% 2.5 ML BOTTLE EACHEYE SCH (21:35)
[2017-04-28] MEDS: *INSULIN REGULAR(HUMULIN R)HUM 100 UNIT/ML VIAL SQ PRN (21:46)
[2017-04-29] MEDS: IPRATROPIUM NEB FS 0.5 MG/2.5 ML AMPUL.NEB NEB SCH ×4 (01:22→20:05)
[2017-04-29 07:56] VITALS: BP 145/71
[2017-04-29] MEDS: BLOOD SUGAR DIAGNOSTIC 1 EACH STRIP VI SCH ×4 (08:40→21:30)
--- NOTE | 2017-04-29 09:10 | NUR ---
IRENE called IRENE Bryan, an atlassian administrator from [facility] at [phone] and left a voicemail to inquire about the status of pt's assessment. IRENE provided contact information. IRENE will follow up.
--- NOTE | 2017-04-29 09:18 | NUR ---
UR Review: IRENE faxed over updated clinicals (updated medlist, progress note, psych H&P as requested) for pt to Jose from [facility], .
[2017-04-29] MEDS: DOCUSATE SODIUM 250 MG CAPSULE PO SCH ×2 (09:27→16:41)
[2017-04-29] MEDS: CARVEDILOL 12.5 MG TABLET PO SCH ×2 (09:27→16:41)
[2017-04-29] MEDS: ASPIRIN EC 81 MG TABLET.DR PO SCH (09:27)
[2017-04-29] MEDS: POTASSIUM CHLORIDE 20 MEQ TAB.PRT.SR PO SCH (09:27)
[2017-04-29] MEDS: FERROUS SULFATE (325 MG) 325 MG/TAB TABLET PO SCH ×2 (09:27→16:42)
[2017-04-29] MEDS: PANTOPRAZOLE 40 MG TABLET.DR PO SCH (09:27)
[2017-04-29] MEDS: cetrizine 10 MG TABLET PO SCH (09:27)
[2017-04-29] MEDS: GLIMEPIRIDE 4 MG TABLET PO SCH ×2 (09:27→16:43)
[2017-04-29] MEDS: AMLODIPINE BESYLATE 5 MG TABLET PO SCH (09:28)
[2017-04-29] MEDS: CALCIUM CARB 250MG /VITAMIN D 1 UDTAB PO SCH (09:28)
[2017-04-29] MEDS: DULOXETINE HCL 30 MG CAPSULE.DR PO SCH (09:28)
[2017-04-29] MEDS: hydrALAZINE HCL 50 MG TABLET PO SCH ×3 (09:29→16:42)
[2017-04-29] MEDS: FLUTICASONE PROPIONATE 16 GM BOTTLE NS SCH (09:32)
[2017-04-29] MEDS: DORZOLAMIDE OPTH 2% 10 ML BOTTLE EACHEYE SCH ×2 (09:32→16:47)
[2017-04-29] MEDS: INSULIN REGULAR, HUMAN 100 UNIT/ML 3 ML VIAL SQ PRN (12:37)
--- NOTE | 2017-04-29 12:51 | NUR ---
IRENE spoke with Jose from [facility] at [phone], who informed IRENE that pt's outside psychiatrist was Dr. Uribe. Jose also stated that, once discharge is confirmed, he can arrange transportation for pt back to [facility]; [address] [place] [address], . Jose stated that he would need a History and Physical, discharge summary and updated medication list faxed over upon discharge. IRENE will follow up.
--- NOTE | 2017-04-29 14:12 | NUR ---
IRENE sent a message to Irvin, an firm administrator from [facility], at [phone]. IRENE informed Irvin that the pt is ready for discharge and that the assessment was supposed to be conducted last evening. IRENE also attempted to call Irvin, but got his voicemail. IRENE then called [facility] and spoke with Juani at [phone]. IRENE asked to speak with Alyx, the data security coordinator, but she was unavailable. IRENE left a message through Juani, stressing the importance of the assessment. IRENE informed them that the pt needs to be discharged today. IRENE will continue to try and reach Irvni.
--- NOTE | 2017-04-29 14:27 | NUR ---
IRENE spoke with Jose from [facility] at [phone] and informed him that [facility] seems to be delaying their assessment. Jose told SW that [facility] is closed on 04/30 and stated that he appreciated the update. IRENE also called pt's son Rajeev Francisco at [phone] and left a voicemail updating him on the delay.
--- NOTE | 2017-04-29 15:01 | NUR ---
Irvin, an surgery center administrator from [facility], at [phone], came in to assess the pt. Irvin informed IRENE that the pt is good to return to [facility], however, it is too late to discharge her today. IRENE informed Irvin that [facility] - the means of transportation for pt - is closed tomorrow 04/30/17. Irvin stated that, in that case, the pt will need to be discharged on 05/01/17. IRENE informed surface ship usw supervisor, Gardenia Watkins [[phone]], of this. IRENE will also inform psychiatrist and will follow up with discharge on 05/01/17.
[2017-04-29 16:05] VITALS: BP 138/70
--- NOTE | 2017-04-29 19:30 | NUR ---
GPS RN NOTE, RECEIVED PATIENT AWAKE AND IN BED, NO S/S OR COMPLAINTS OF PAIN AT THIS TIME. PATIENT IS DISPLAYING NO S/S OF APPARENT DISTRESS AT THIS TIME. PATIENT BREATHING IS UNLABORED WITH EQUAL RISE AND FALL OF THE CHEST. PATIENT IS ALERT AND ORIENTED X 1 ON ROOM AIR WITH A SPO2 94%. PATIENT COMPLIANT MEDICATION, ANXIOUS, CONFUSED, DISORGANIZED, WITHDRAWN, DEPRESSED, DISORGANIZE, COOPERATIVE, AND NEEDS REORIENTATION. PATIENT DENIES SUICIDE AND HOMICIDAL IDEATIONS AT THIS TIME. PATIENT ASSISTED WITH TURNING AND REPOSITIONING Q2HR AND PRN FOR COMFORT AND CIRCULATION. PATIENT HAS NO NEEDS AT THIS TIME. PATIENT EDUCATED ON THE USE OF THE CALL OGLESBY. PATIENT BED SIDE RAILS UP X2 FOR SAFETY, BED IS LOCKED AND LOW WILL CONTINUE TO MONITOR AND MAINTAIN SAFETY.
[2017-04-29 19:59] VITALS: BP 148/75
[2017-04-29] MEDS: DONEPEZIL 5 MG TABLET PO SCH (21:22)
[2017-04-29] MEDS: LATANOPROST EYE DROP 0.005% 2.5 ML BOTTLE EACHEYE SCH (21:22)
[2017-04-29] MEDS: ATORVASTATIN 10 MG TABLET PO SCH (21:22)
[2017-04-29] MEDS: SENNOSIDES 8.6 MG TABLET PO SCH (21:23)
[2017-04-29] MEDS: OLANZAPINE 2.5 MG TABLET PO SCH (21:23)
--- NOTE | 2017-04-29 21:30 | NUR ---
GPS RN NOTE, PERFORMED ACCU CHECK ON PATIENT WITH A BLOOD SUGAR RESULT OF 220. GAVE 4 UNITS OF REGULAR INSULIN PER SLIDING SCALE. WILL CONTINUE TO MONITOR THIS PATIENT.
[2017-04-29] MEDS: *INSULIN REGULAR(HUMULIN R)HUM 100 UNIT/ML VIAL SQ PRN (21:34)
[2017-04-30] MEDS: IPRATROPIUM NEB FS 0.5 MG/2.5 ML AMPUL.NEB NEB SCH ×4 (01:03→19:30)
[2017-04-30] MEDS: ALBUTEROL FS 2.5 MG/3 ML VIAL.NEB NEB PRN (07:12)
[2017-04-30 07:59] VITALS: BP 141/62
[2017-04-30] MEDS: BLOOD SUGAR DIAGNOSTIC 1 EACH STRIP VI SCH ×4 (08:07→21:37)
[2017-04-30] MEDS: DULOXETINE HCL 30 MG CAPSULE.DR PO SCH (08:11)
[2017-04-30] MEDS: PANTOPRAZOLE 40 MG TABLET.DR PO SCH (08:12)
[2017-04-30] MEDS: CALCIUM CARB 250MG /VITAMIN D 1 UDTAB PO SCH (08:12)
[2017-04-30] MEDS: ASPIRIN EC 81 MG TABLET.DR PO SCH (08:12)
[2017-04-30] MEDS: GLIMEPIRIDE 4 MG TABLET PO SCH ×2 (08:12→16:42)
[2017-04-30] MEDS: CARVEDILOL 12.5 MG TABLET PO SCH ×2 (08:12→16:42)
[2017-04-30] MEDS: DOCUSATE SODIUM 250 MG CAPSULE PO SCH ×2 (08:12→16:42)
[2017-04-30] MEDS: FERROUS SULFATE (325 MG) 325 MG/TAB TABLET PO SCH ×2 (08:12→16:42)
[2017-04-30] MEDS: cetrizine 10 MG TABLET PO SCH (08:12)
[2017-04-30] MEDS: hydrALAZINE HCL 50 MG TABLET PO SCH ×3 (08:13→16:43)
[2017-04-30] MEDS: FLUTICASONE PROPIONATE 16 GM BOTTLE NS SCH (08:13)
[2017-04-30] MEDS: DORZOLAMIDE OPTH 2% 10 ML BOTTLE EACHEYE SCH ×2 (08:13→16:46)
[2017-04-30] MEDS: AMLODIPINE BESYLATE 5 MG TABLET PO SCH (08:13)
[2017-04-30] MEDS: POTASSIUM CHLORIDE 20 MEQ TAB.PRT.SR PO SCH (08:37)
[2017-04-30 11:14] LABS: CALCITRIOL VIT D,1, 25 DIHYDRO 10.2 pg/mL (19.9-79.3)
[2017-04-30] MEDS: INSULIN REGULAR, HUMAN 100 UNIT/ML 3 ML VIAL SQ PRN (12:33)
--- NOTE | 2017-04-30 14:16 | NUR ---
GPS RN NOTE: Peggy BURGER NOTIFIED OF PATIENT FACE RASH
[2017-04-30 16:00] VITALS: BP 130/60
--- NOTE | 2017-04-30 16:36 | NUR ---
GPS RN NOTE: PT WAS ASSESSED BY Peggy MELGAR NEW ORDERED TO PUT PT ON ISOLATION CONTACT AIRBORNE FOR HERPES ZOSTER AND START ZOVIRAX 800 MG BID WILL INDORSE TO INCOMING SHIFT NURSE AND CONTINUE MONITORING FOR SAFETY AND BEHAVIOR Q 15 MIN
[2017-04-30] MEDS: ACYCLOVIR 800 MG TABLET PO SCH (16:42)
[2017-04-30 17:34] LABS: APPEARANCE,URINE CLEAR (CLEAR); BILIRUBIN,URINE NEGATIVE (NEGATIVE); BLOOD, URINE NEGATIVE Ery/uL (NEGATIVE); COLOR,URINE YELLOW (YELLOW); KETONES,URINE NEGATIVE (NEGATIVE); LEUKOCYTE ESTERASE ,URINE NEGATIVE (NEGATIVE); NITRITE, URINE NEGATIVE (NEGATIVE); PROTEIN,URINE 2+ mg/dl (NEGATIVE); UGLUCOSE NEGATIVE (NEGATIVE); UROBILINOGEN,URINE 0.2 EU/dL (0.2)
[2017-04-30 17:36] LABS: BACTERIA,URINE Rare /HPF (None Seen); RBC,URINE 0-2 /HPF (0-2); SQUAMOUS EPITHELIAL CELL,UR Few /HPF (None Seen); WBC,URINE 0-2 /HPF (0-3)
[2017-04-30 17:39] LABS: CREATININE, URINE 43.6 MG/DL (30.0-125.0); URINE TOTAL PROTEIN 147.8 mg/dL (0-11.9)
[2017-04-30 17:43] LABS: EOSINOPHIL,URINE None Seen
[2017-04-30 19:57] VITALS: BP 151/74
[2017-04-30 20:00] VITALS: BP 151/74
[2017-04-30] MEDS: OLANZAPINE 2.5 MG TABLET PO SCH (21:29)
[2017-04-30] MEDS: SENNOSIDES 8.6 MG TABLET PO SCH (21:29)
[2017-04-30] MEDS: DONEPEZIL 5 MG TABLET PO SCH (21:29)
[2017-04-30] MEDS: ATORVASTATIN 10 MG TABLET PO SCH (21:29)
[2017-04-30] MEDS: LATANOPROST EYE DROP 0.005% 2.5 ML BOTTLE EACHEYE SCH (21:37)
[2017-04-30] MEDS: *INSULIN REGULAR(HUMULIN R)HUM 100 UNIT/ML VIAL SQ PRN (21:38)
[2017-05-01] MEDS: IPRATROPIUM NEB FS 0.5 MG/2.5 ML AMPUL.NEB NEB SCH ×4 (01:12→19:30)
--- NOTE | 2017-05-01 07:29 | NUR ---
GPS RN: PATIENT'S BS 56MG/DL, PATIENT IS AWAKE, ALERT AND ORIENTED, NO S/S OF HYPOGLYCEMIA, PROVIDED WITH ORANGE JUICE AND IS ABOUT TO EAT BREAKFAST. CONTINUE TO MONITOR THE PATIENT.
[2017-05-01] MEDS: BLOOD SUGAR DIAGNOSTIC 1 EACH STRIP VI SCH ×4 (07:41→21:32)
[2017-05-01] MEDS: DOCUSATE SODIUM 250 MG CAPSULE PO SCH ×2 (08:07→17:06)
[2017-05-01] MEDS: ASPIRIN EC 81 MG TABLET.DR PO SCH (08:07)
[2017-05-01] MEDS: FERROUS SULFATE (325 MG) 325 MG/TAB TABLET PO SCH ×2 (08:07→17:06)
[2017-05-01] MEDS: POTASSIUM CHLORIDE 20 MEQ TAB.PRT.SR PO SCH (08:07)
[2017-05-01] MEDS: cetrizine 10 MG TABLET PO SCH (08:07)
[2017-05-01] MEDS: ACYCLOVIR 800 MG TABLET PO SCH ×2 (08:07→17:06)
[2017-05-01] MEDS: DULOXETINE HCL 30 MG CAPSULE.DR PO SCH (08:08)
[2017-05-01] MEDS: CARVEDILOL 12.5 MG TABLET PO SCH ×2 (08:08→17:06)
[2017-05-01] MEDS: GLIMEPIRIDE 4 MG TABLET PO SCH ×2 (08:08→17:06)
[2017-05-01] MEDS: AMLODIPINE BESYLATE 5 MG TABLET PO SCH (08:08)
[2017-05-01] MEDS: PANTOPRAZOLE 40 MG TABLET.DR PO SCH (08:08)
[2017-05-01] MEDS: CALCIUM CARB 250MG /VITAMIN D 1 UDTAB PO SCH (08:08)
[2017-05-01] MEDS: DORZOLAMIDE OPTH 2% 10 ML BOTTLE EACHEYE SCH ×2 (08:10→17:06)
[2017-05-01] MEDS: FLUTICASONE PROPIONATE 16 GM BOTTLE NS SCH (08:10)
[2017-05-01 08:26] VITALS: BP 151/69
[2017-05-01] MEDS: hydrALAZINE HCL 50 MG TABLET PO SCH ×3 (09:06→17:06)
[2017-05-01] MEDS: ALBUTEROL FS 2.5 MG/3 ML VIAL.NEB NEB PRN (09:21)
--- NOTE | 2017-05-01 10:18 | NUR ---
IRENE spoke with Jose from [facility], and with Ronda Pitts from [facility]; [phone] and informed them that pt is not ready for discharge due to a new medical condition. IRENE stated that she will inform them of a discharge date once it is confirmed.
[2017-05-01] MEDS: INSULIN REGULAR, HUMAN 100 UNIT/ML 3 ML VIAL SQ PRN (11:56)
[2017-05-01 16:00] VITALS: BP 130/45
[2017-05-01 20:00] VITALS: BP 138/68
[2017-05-01] MEDS: SENNOSIDES 8.6 MG TABLET PO SCH (21:31)
[2017-05-01] MEDS: LATANOPROST EYE DROP 0.005% 2.5 ML BOTTLE EACHEYE SCH (21:31)
[2017-05-01] MEDS: DONEPEZIL 5 MG TABLET PO SCH (21:31)
[2017-05-01] MEDS: ATORVASTATIN 10 MG TABLET PO SCH (21:31)
[2017-05-01] MEDS: OLANZAPINE 2.5 MG TABLET PO SCH (21:32)
[2017-05-01] MEDS: TEMAZEPAM 7.5 MG CAPSULE PO PRN (21:32)
[2017-05-01] MEDS: *INSULIN REGULAR(HUMULIN R)HUM 100 UNIT/ML VIAL SQ PRN (21:34)
[2017-05-02] MEDS: IPRATROPIUM NEB FS 0.5 MG/2.5 ML AMPUL.NEB NEB SCH ×4 (00:49→21:37)
[2017-05-02] MEDS: BLOOD SUGAR DIAGNOSTIC 1 EACH STRIP VI SCH ×4 (07:54→21:59)
[2017-05-02 08:00] VITALS: BP 130/69
[2017-05-02] MEDS: FLUTICASONE PROPIONATE 16 GM BOTTLE NS SCH (09:20)
[2017-05-02] MEDS: POTASSIUM CHLORIDE 20 MEQ TAB.PRT.SR PO SCH (09:20)
[2017-05-02] MEDS: DORZOLAMIDE OPTH 2% 10 ML BOTTLE EACHEYE SCH ×2 (09:20→16:19)
[2017-05-02] MEDS: FERROUS SULFATE (325 MG) 325 MG/TAB TABLET PO SCH ×2 (09:21→16:16)
[2017-05-02] MEDS: cetrizine 10 MG TABLET PO SCH (09:21)
[2017-05-02] MEDS: ASPIRIN EC 81 MG TABLET.DR PO SCH (09:21)
[2017-05-02] MEDS: AMLODIPINE BESYLATE 5 MG TABLET PO SCH (09:21)
[2017-05-02] MEDS: DOCUSATE SODIUM 250 MG CAPSULE PO SCH ×2 (09:21→16:17)
[2017-05-02] MEDS: ACYCLOVIR 800 MG TABLET PO SCH ×2 (09:21→16:16)
[2017-05-02] MEDS: CALCIUM CARB 250MG /VITAMIN D 1 UDTAB PO SCH (09:21)
[2017-05-02] MEDS: DULOXETINE HCL 30 MG CAPSULE.DR PO SCH (09:21)
[2017-05-02] MEDS: GLIMEPIRIDE 4 MG TABLET PO SCH ×2 (09:21→16:16)
[2017-05-02] MEDS: PANTOPRAZOLE 40 MG TABLET.DR PO SCH (09:21)
[2017-05-02] MEDS: hydrALAZINE HCL 50 MG TABLET PO SCH ×3 (09:22→16:16)
[2017-05-02] MEDS: CARVEDILOL 12.5 MG TABLET PO SCH ×2 (09:22→16:17)
[2017-05-02] MEDS: INSULIN REGULAR, HUMAN 100 UNIT/ML 3 ML VIAL SQ PRN ×3 (11:59→22:01)
[2017-05-02] MEDS: ALBUTEROL FS 2.5 MG/3 ML VIAL.NEB NEB PRN (14:38)
[2017-05-02 16:07] VITALS: BP 136/58
[2017-05-02 20:00] VITALS: BP 143/69
[2017-05-02] MEDS: ATORVASTATIN 10 MG TABLET PO SCH (21:38)
[2017-05-02] MEDS: SENNOSIDES 8.6 MG TABLET PO SCH (21:38)
[2017-05-02] MEDS: OLANZAPINE 2.5 MG TABLET PO SCH (21:39)
[2017-05-02] MEDS: DONEPEZIL 5 MG TABLET PO SCH (21:39)
[2017-05-02] MEDS: LATANOPROST EYE DROP 0.005% 2.5 ML BOTTLE EACHEYE SCH (21:57)
--- NOTE | 2017-05-02 23:49 | NUR ---
Pt has been anhedonic, emotionally labile, withdrawn, & with depressed mood but compliant with care w/o any promptings.
--- NOTE | 2017-05-02 23:50 | NUR ---
Pt's blood sugar level tonight was 165 mg/dl & 3 Units of Regular Insulin was given SC as ordered by .
[2017-05-03] MEDS: IPRATROPIUM NEB FS 0.5 MG/2.5 ML AMPUL.NEB NEB SCH ×4 (01:30→19:30)
[2017-05-03 06:56] LABS: BASOPHILS % (AUTO) 0.5 % (0.0-2.0); EOSINOPHILS # (AUTO) 0.2 /CMM (0.0-0.7); EOSINOPHILS % (AUTO) 2.3 % (0.0-6.0); HEMATOCRIT 38 % (33-45); HEMOGLOBIN 12.3 g/dL (11.5-14.8); LYMPHOCYTES # (AUTO) 1.3 /CMM (0.8-4.8); LYMPHOCYTES % (AUTO) 18.3 % (20.0-44.0); MEAN CORPUSCULAR HEMOGLOBIN 29 PG (26.0-33.0); MEAN CORPUSCULAR HGB CONC 33 g/dl (31.0-36.0); MEAN CORPUSCULAR VOLUME 89 fL (82-100); MONOCYTES # (AUTO) 0.4 /CMM (0.1-1.30); MONOCYTES % (AUTO) 5.3 % (2.0-12.0); NEUTROPHILS # (AUTO) 5.4 /CMM (1.8-8.9); NEUTROPHILS % (AUTO) 73.6 % (43.0-81.0); PLATELET COUNT (AUTO) 153 /CMM (150-450); RDW COEFFICIENT OF VARIATION 13.5 (11.5-15.0); RED BLOOD CELL COUNT(AUTO) 4.23 MIL/uL (4.0-5.2); WHITE BLOOD COUNT (AUTO) 7.3 K/uL (4.3-11.0)
[2017-05-03 07:25] LABS: ALANINE AMINOTRANSFERASE 21 U/L (12-78); ALKALINE PHOSPHATASE 82 U/L (46-116); ASPARTATE AMINOTRANSFERASE 18 U/L (15-37); BILIRUBIN,TOTAL 0.3 mg/dL (0.2-1.0); CALCIUM, SERUM 9.4 mg/dL (8.5-10.1); CARBON DIOXIDE 26 mmol/L (21-32); CHLORIDE 109 mmol/L (98-107); CREATININE 1.5 mg/dL (0.6-1.3); GLUCOSE 102 mg/dL (74-106); PHOSPHORUS 3.9 mg/dL (2.5-4.9); POTASSIUM 4.1 mmol/L (3.5-5.1); SODIUM SERUM 143 mmol/L (136-145); TOTAL PROTEIN, SERUM 7.4 g/dL (6.4-8.2); UREA NITROGEN, BLOOD 39 mg/dL (7-18)
[2017-05-03 08:00] VITALS: BP 143/55
[2017-05-03] MEDS: BLOOD SUGAR DIAGNOSTIC 1 EACH STRIP VI SCH ×4 (08:28→21:56)
[2017-05-03] MEDS: CALCIUM CARB 250MG /VITAMIN D 1 UDTAB PO SCH (11:00)
[2017-05-03] MEDS: PANTOPRAZOLE 40 MG TABLET.DR PO SCH (11:01)
[2017-05-03] MEDS: FERROUS SULFATE (325 MG) 325 MG/TAB TABLET PO SCH ×2 (11:01→17:32)
[2017-05-03] MEDS: DOCUSATE SODIUM 250 MG CAPSULE PO SCH ×2 (11:02→17:32)
[2017-05-03] MEDS: DULOXETINE HCL 30 MG CAPSULE.DR PO SCH (11:02)
[2017-05-03] MEDS: POTASSIUM CHLORIDE 20 MEQ TAB.PRT.SR PO SCH (11:02)
[2017-05-03] MEDS: CARVEDILOL 12.5 MG TABLET PO SCH ×2 (11:02→17:33)
[2017-05-03] MEDS: hydrALAZINE HCL 50 MG TABLET PO SCH ×3 (11:03→17:32)
[2017-05-03] MEDS: cetrizine 10 MG TABLET PO SCH (11:03)
[2017-05-03] MEDS: GLIMEPIRIDE 4 MG TABLET PO SCH ×2 (11:03→17:32)
[2017-05-03] MEDS: AMLODIPINE BESYLATE 5 MG TABLET PO SCH (11:03)
[2017-05-03] MEDS: ACYCLOVIR 800 MG TABLET PO SCH ×2 (11:04→17:32)
[2017-05-03] MEDS: ASPIRIN EC 81 MG TABLET.DR PO SCH (11:04)
[2017-05-03] MEDS: DORZOLAMIDE OPTH 2% 10 ML BOTTLE EACHEYE SCH ×2 (11:05→17:31)
[2017-05-03] MEDS: FLUTICASONE PROPIONATE 16 GM BOTTLE NS SCH (11:05)
[2017-05-03] MEDS: INSULIN REGULAR, HUMAN 100 UNIT/ML 3 ML VIAL SQ PRN (12:23)
[2017-05-03 16:00] VITALS: BP 140/63
[2017-05-03 20:17] VITALS: BP 138/51
[2017-05-03] MEDS: ATORVASTATIN 10 MG TABLET PO SCH (21:55)
[2017-05-03] MEDS: DONEPEZIL 5 MG TABLET PO SCH (21:55)
[2017-05-03] MEDS: SENNOSIDES 8.6 MG TABLET PO SCH (21:55)
[2017-05-03] MEDS: LATANOPROST EYE DROP 0.005% 2.5 ML BOTTLE EACHEYE SCH (21:56)
[2017-05-03] MEDS: OLANZAPINE 2.5 MG TABLET PO SCH (21:56)
[2017-05-03] MEDS: *INSULIN REGULAR(HUMULIN R)HUM 100 UNIT/ML VIAL SQ PRN (22:03)
--- NOTE | 2017-05-03 22:15 | NUR ---
RN NOTES PATIENT'S BLOOD SUGAR 164. PATIENT REFUSES INSULIN AT THIS TIME. PATIENT TEACHING REGARDING DM AND MEDICATION ADHERENCE RENDERED. PATIENT VERBALIZES UNDERSTANDING, BUT STILL STRONGLY REFUSES. WILL CONTINUE TO CLOSELY MONITOR
[2017-05-04] MEDS: IPRATROPIUM NEB FS 0.5 MG/2.5 ML AMPUL.NEB NEB SCH ×3 (01:30→13:30)
[2017-05-04] MEDS: BLOOD SUGAR DIAGNOSTIC 1 EACH STRIP VI SCH ×2 (07:34→12:04)
[2017-05-04 07:55] VITALS: BP 180/66
[2017-05-04] MEDS: DORZOLAMIDE OPTH 2% 10 ML BOTTLE EACHEYE SCH (08:34)
[2017-05-04] MEDS: FLUTICASONE PROPIONATE 16 GM BOTTLE NS SCH (08:34)
[2017-05-04] MEDS: POTASSIUM CHLORIDE 20 MEQ TAB.PRT.SR PO SCH (08:35)
[2017-05-04] MEDS: DULOXETINE HCL 30 MG CAPSULE.DR PO SCH (08:35)
[2017-05-04] MEDS: ACYCLOVIR 800 MG TABLET PO SCH (08:35)
[2017-05-04] MEDS: hydrALAZINE HCL 50 MG TABLET PO SCH ×2 (08:35→13:03)
[2017-05-04] MEDS: ASPIRIN EC 81 MG TABLET.DR PO SCH (08:35)
[2017-05-04] MEDS: DOCUSATE SODIUM 250 MG CAPSULE PO SCH (08:35)
[2017-05-04] MEDS: cetrizine 10 MG TABLET PO SCH (08:35)
[2017-05-04] MEDS: AMLODIPINE BESYLATE 5 MG TABLET PO SCH (08:36)
[2017-05-04] MEDS: PANTOPRAZOLE 40 MG TABLET.DR PO SCH (08:36)
[2017-05-04] MEDS: FERROUS SULFATE (325 MG) 325 MG/TAB TABLET PO SCH (08:37)
[2017-05-04] MEDS: CARVEDILOL 12.5 MG TABLET PO SCH (08:37)
[2017-05-04] MEDS: CALCIUM CARB 250MG /VITAMIN D 1 UDTAB PO SCH (08:37)
[2017-05-04] MEDS: GLIMEPIRIDE 4 MG TABLET PO SCH (08:50)
[2017-05-04] MEDS: INSULIN REGULAR, HUMAN 100 UNIT/ML 3 ML VIAL SQ PRN (12:06)
[2017-05-04 13:03] VITALS: BP 130/69
--- NOTE | 2017-05-04 13:55 | NUR ---
IRENE attempted to contact Alyx from admissions at [facility] at [phone]. IRENE called a second time and informed Cisco, the medical office secretary, that pt was no longer in isolation and that she was assessed last week. IRENE stated that she will be discharged today. Irene then called and left a voicemail for Jose at [facility],[phone] inquiring about transportation. IRENE then attempted to contact Ronda Pitts from [facility], , with no success. IRENE called Jose again at 2pm and left a voicemail stating that if they do not arrange transportation, then the ambulance will bill them. IRENE was able to get a hold of Ronda and spoke with her about transportation. Ronda stated that Jose will return from lunch shortly and that they would like to arrange transportation. IRENE informed Ronda that pt will be discharged between 3pm-4pm.
--- NOTE | 2017-05-04 14:36 | NUR ---
Discharge Note: Patient will be discharged to [facility] ([address] [facility], [place] [address] via transportation arranged by insurance company at 3:30 pm. Patient will be picked up by taxi with a caregiver arranged by the insurance company. Patients family is aware and agree with discharge plans. Patients son, Rajeev [phone], was notified. Patient will follow up with her psychiatrist Dr. Uribe; [address] [address] [phone] on 05/08/17 at 1pm.
--- NOTE | 2017-05-04 15:47 | NUR ---
DISCHARGE NOTES PATIENT DISCHARGE AT THIS TIME GOING SHELTER . PATIENT A/O X3, MED COMPLIANT, V/S STABLE, MEDICALLY STABLE, NO C/O PAIN. PATIENT DENIED SI/HI/AVH AT THIS TIME. MED RECONCILIATION, AND DISCHARGE ORDER REVIEWED AND EXPLAINED TOO. PATIENT VERBALIZED UNDERSTANDING. BELONGING RETURNED BACK TO THE PATIENT. PATIENT ENTERPRISE CLOUD ARCHITECT BY CAB. DR LORENZANA, AND [employer] WILL FOLLOW PATIENT IN THE SHELTER. ESCORTED PATIENT TO THE LOBBY FOR SAFETY.
[2017-05-05] MEDS ORDERED: ALENDRONATE 70 MG TABLET PO SCH (07:30)
== END 2017-05-04 15:47 | DRG 885 ==
LOC: ER 15:43 → GPS 17:47
PROVIDERS: ADMIT Psychiatry & Neurology Psychosomatic Medicine; ATTEND Psychiatry & Neurology Psychosomatic Medicine
DX: F33.3 Major depressive disorder, recurrent, severe with psychotic symptoms (principal); F02.80 Dementia in other diseases classified elsewhere, unspecified severity, without behavioral disturbance, psychotic disturbance, mood disturbance, and anxiety; N17.0 Acute kidney failure with tubular necrosis; N18.9 Chronic kidney disease, unspecified; Z93.3 Colostomy status; E46 Unspecified protein-calorie malnutrition; R45.851 Suicidal ideations; B02.8 Zoster with other complications; G30.9 Alzheimer's disease, unspecified; E11.22 Type 2 diabetes mellitus with diabetic chronic kidney disease; E78.5 Hyperlipidemia, unspecified; E86.9 Volume depletion, unspecified; F41.9 Anxiety disorder, unspecified; I12.9 Hypertensive chronic kidney disease with stage 1 through stage 4 chronic kidney disease, or unspecified chronic kidney disease; I25.10 Atherosclerotic heart disease of native coronary artery without angina pectoris; J44.9 Chronic obstructive pulmonary disease, unspecified; K21.9 Gastro-esophageal reflux disease without esophagitis; M81.0 Age-related osteoporosis without current pathological fracture; Z79.84 Long term (current) use of oral hypoglycemic drugs; Z79.899 Other long term (current) drug therapy; Z87.891 Personal history of nicotine dependence; Z96.641 Presence of right artificial hip joint; M19.90 Unspecified osteoarthritis, unspecified site; T50.1X5A Adverse effect of loop [high-ceiling] diuretics, initial encounter; Y92.099 Unspecified place in other non-institutional residence as the place of occurrence of the external cause; H91.10 Presbycusis, unspecified ear
CPT/HCPCS: 36415; 80048-TC; 80053-TC; 80061-TC; 80076-TC; 80305; 81000-TC; 82306; 82550-TC; 82570-TC; 82652; 82962-TC; 83735-TC; 83970; 84100-TC; 84155; 84155-TC; 84165; 84300-TC; 84443-TC; 85025-TC; 87081-TC; 90732; 93307-TC; A4606; G0480; J1815; Z7610